=== PATIENT | male | born 1980 | race Two or more races ===

== ENCOUNTER 2017-06-25 13:42 | Emergency (ER) | payer OTHER ==
[~2017-06-25] VITALS: Ht 190.5 cm; Wt 80.7 kg
[2017-06-25 13:44] VITALS: BP 125/79
== END 2017-06-25 15:58 | disposition home or self-care (01) ==
LOC: EDBD 13:42 → ED 15:52
DX: S62.326A Displaced fracture of shaft of fifth metacarpal bone, right hand, initial encounter for closed fracture (principal); G89.11 Acute pain due to trauma; V19.9XXA Pedal cyclist (driver) (passenger) injured in unspecified traffic accident, initial encounter; Y93.55 Activity, bike riding; Y92.488 Other paved roadways as the place of occurrence of the external cause; Y99.8 Other external cause status
CPT/HCPCS: 29125

== ENCOUNTER 2017-08-18 00:35 | Emergency (ER) | payer OTHER ==
[~2017-08-18] VITALS: Ht 190.5 cm; Wt 85.8 kg
[2017-08-18 00:36] VITALS: BP 123/85
[2017-08-18] MEDS ORDERED: AZITHROMYCIN 250 MG TABLET ONE (02:25)
[2017-08-18] MEDS ORDERED: CEFTRIAXONE 250 MG ONE (02:25)
[2017-08-18] MEDS ORDERED: CEFTRIAXONE 250 MG IM ONE (02:30)
[2017-08-18] MEDS ORDERED: AZITHROMYCIN 500 MG TABLET PO ONE (02:30)
== END 2017-08-18 04:01 | disposition home or self-care (01) ==
LOC: ED 03:15
DX: Z20.2 Contact with and (suspected) exposure to infections with a predominantly sexual mode of transmission (principal)
CPT/HCPCS: 81001; 87077; 87086; 87491; 87591; 96372; 99284; J0696

== ENCOUNTER 2017-08-23 05:12 | Emergency (ER) | payer SELFPAY ==
[2017-08-23] MEDS ORDERED: DILTIAZEM 5 MG/ML, 5ML ONE ×2 (05:25→06:05)
== END 2017-08-23 05:48 | disposition left against medical advice (07) ==
LOC: ED 05:45
DX: M25.529 Pain in unspecified elbow (principal); Z53.21 Procedure and treatment not carried out due to patient leaving prior to being seen by health care provider